=== PATIENT | female | born 1945 | race Caucasian/White ===

== ENCOUNTER 2019-06-27 11:00 | Inpatient (IN) | payer OTHER ==
[~2019-06-27] VITALS: Ht 165.1 cm; Wt 88.5 kg
[2019-06-27 11:05] VITALS: BP 129/60
[2019-06-27] MEDS ORDERED: LEXAPRO20 MG PO (11:11)
[2019-06-27] MEDS ORDERED: BUPROPION HCL150 M1 PO (11:11)
[2019-06-27] MEDS ORDERED: LEVEMIR100 UNIT/1 SUBQ (11:11)
[2019-06-27 11:45] LABS: HEMATOCRIT 41.5 % (37.0-47.0); HEMOGLOBIN 13.9 gm/dL (12.0-15.0); MCH 30.7 pg (26.0-34.0); MCHC 33.5 g/dL (28.0-37.0); MCV 91.6 fL (80.0-100.0); NUCLEATED RBCS 0 /100WBC; PLATELET COUNT* 182 thou/uL (150-400); RBC 4.52 mil/uL (4.20-5.00); RDW-CV 13.1 % (10.5-14.5); WBC 14.2 thou/uL (4.0-11.0)
[2019-06-27 11:56] LABS: CALCIUM 7.8 mg/dL (8.5-10.1); CREATININE 0.9 mg/dL (0.6-1.3); POTASSIUM 3.5 mmol/L (3.5-5.1)
[2019-06-27 11:57] LABS: APTT 25.9 Seconds (25.0-31.3); PROTIME 10.5 Seconds (9.20-11.50)
[2019-06-27 11:58] LABS: INFLUENZA A ANTIGEN Negative (Negative); INFLUENZA B ANTIGEN Negative (Negative)
[2019-06-27 12:01] LABS: TOTAL PROTEIN 6.4 g/dL (6.4-8.2)
[2019-06-27 12:16] LABS: ABSOLUTE LYMPHOCYTES 1.4 thou/uL (0.8-5.3); ABSOLUTE MONOCYTES 0.1 thou/uL (0.0-1.2); ABSOLUTE NEUTROPHILS 12.6 thou/uL (1.6-8.1); PLATELET ESTIMATE ADEQUATE
[2019-06-27 13:56] VITALS: BP 130/58
[2019-06-27] MEDS ORDERED: MICARDIS 20MG T20 M1 PO (14:18)
[2019-06-27 15:29] VITALS: BP 131/49
--- NOTE | 2019-06-27 18:42 | NUR ---
PATIENT RESTING IN BED. UP AD NOAH IN ROOM. FLU TESTING NEGATIVE. HINI RESP PANEL AND COVID19 TESTING OBTAINED AND AWAITING RESULTS. VSS. CESAR IN NOAPPARENT SIGNS OF DISTRESS AT THIS TIME. SHE IS CURRENTLY IN CONTACT/DROPLET PRECAUTIONS. HOURLY ROUNDING COMPLETED FOR [employer]INE SAFETY
[2019-06-27 19:45] VITALS: BP 130/50
[2019-06-28] VITALS (7 sets, daily range): BP systolic 95–136; BP diastolic 48–62
--- NOTE | 2019-06-28 01:31 | NUR ---
ASSUMED CARE OF PT AT 1900. PT IS ALERT AND ORIENTED. VSS. PERRLA. NO COMPLAINTS OF PAIN. PT IS ON ROOM AIR. NO FEVERS THIS SHIFT. PT IS IN SINUS RYTHM ON THE TELEMETRY. PT IS SLEEPING QUIETLY IN BED. RESPIRATIONS ARE EVEN AND NONLABORED. WILL CONTINUE TO MONITOR PT.
[2019-06-28 05:45] LABS: HEMATOCRIT 34.9 % (37.0-47.0); HEMOGLOBIN 12.1 gm/dL (12.0-15.0); MCH 31.2 pg (26.0-34.0); MCHC 34.6 g/dL (28.0-37.0); MPV 9.8 fl. (7.2-11.1); RBC 3.87 mil/uL (4.20-5.00); RDW-CV 13.2 % (10.5-14.5); WBC 14.3 thou/uL (4.0-11.0)
[2019-06-28 06:04] LABS: ALBUMIN 2.6 g/dL (3.4-5.0); CALCIUM 8.1 mg/dL (8.5-10.1); CREATININE 0.7 mg/dL (0.6-1.3); MAGNESIUM 1.7 mg/dL (1.8-2.4); POTASSIUM 3.6 mmol/L (3.5-5.1); TOTAL BILIRUBIN 0.5 mg/dL (<0.1-1.0); TOTAL PROTEIN 6.1 g/dL (6.4-8.2)
--- NOTE | 2019-06-28 09:10 | EKG ---
[place] [address] ELECTROCARDIOGRAM REPORT Name: ANA MONTERO Room: [address] ADM [place] ..#: [id number] Admission: 06/27/19 Attend Phys: Kimber Sykes, Discharge: Date of : 49 Date of Service: 06/27/19 1115 Report #: [id number] THIS REPORT FOR: //name// [facility] ED Test Date: 2019-06-27 Test Time: 11:15:04 Pat Name: ANA MONTERO Department: Room: 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 06/28/19 0909 1115 1115 Mika Jimenez MD, [facility] /EPI
--- NOTE | 2019-06-28 13:22 | NUR ---
COVID-19 test pending. Spoke with , anticipate negative result. Pt is from home with . Independent. No needs anticipated. Following.
--- NOTE | 2019-06-29 04:02 | NUR ---
ASSUMED CARE OF PT AT 1900. PT IS ALERT AND ORIENTED. VSS. PERRLA. NO COMPLAINTS OF PAIN. PT IS IN SINUS RYTHM ON THE TELEMETRY. PT IS IN ISOLATIONS FOR POSSIBLE COVID. PT IS SLEEPING COMFORTABLY IN BED. RESPIRATIONS ARE EVEN AND NONLABORED. WILL CONTINUE TO MONITOR PT.
[2019-06-29 04:18] VITALS: BP 116/41
[2019-06-29 06:26] LABS: HEMATOCRIT 34.6 % (37.0-47.0); HEMOGLOBIN 11.9 gm/dL (12.0-15.0); MCH 31.5 pg (26.0-34.0); MCHC 34.4 g/dL (28.0-37.0); MCV 91.6 fL (80.0-100.0); MPV 11.1 fl. (7.2-11.1); RBC 3.78 mil/uL (4.20-5.00); RDW-CV 13.4 % (10.5-14.5); WBC 10.6 thou/uL (4.0-11.0)
[2019-06-29 06:42] LABS: CALCIUM 8.3 mg/dL (8.5-10.1); CREATININE 0.6 mg/dL (0.6-1.3); MAGNESIUM 1.6 mg/dL (1.8-2.4); POTASSIUM 3.5 mmol/L (3.5-5.1)
[2019-06-29 08:00] VITALS: BP 120/61
[2019-06-29 12:00] VITALS: BP 121/53
[2019-06-29] MEDS ORDERED: NEURONTIN600 MG PO (13:16)
[2019-06-29] MEDS ORDERED: TRAZODONE HCL100 MG PO (13:16)
[2019-06-29] MEDS ORDERED: BENZONATATE100 MG PO (13:16)
[2019-06-29] MEDS ORDERED: LEVAQUIN 500 M500 M3 PO (13:16)
[2019-06-29 13:45] VITALS: BP 121/53
--- NOTE | 2019-06-29 19:02 | NUR ---
ORDER RECEIVED TO DISCHARGE CESAR HOME TO SELF CARE. MED REC, MEDICATION EDUCATION, AND NEED FOR FOLLOW UP APPTS COVERED WITH PATIENT. SHE WAS IBNSTRUCTED ON THE NEED TO SELF ISOLATE WIOTH HER HUSBANMD UNTIOL THE RESULTS OF COVID19 TESTING IS REPORTED TO HER. DC TIME OF 17:05.
[2019-07-03 06:07] LABS: ADENOVIRUS Negative (Negative); INFLUENZA A Negative (Negative); INFLUENZA B Negative (Negative); METAPNEUMOVIRUS Negative (Negative); PARAINFLUENZA 1 Negative (Negative); PARAINFLUENZA 2 Negative (Negative); PARAINFLUENZA 3 Negative (Negative); RHINOVIRUS Negative (Negative); RSV A Negative (Negative); RSV B Negative (Negative)
== END 2019-06-29 17:07 | disposition home or self-care (01) | DRG 177 ==
LOC: M.ERS 11:00 → M.TBA-ER 12:39 → M.2W 12:39
PROVIDERS: Nurse Practitioner Family; ADMIT Internal Medicine
DX: J15.6 Pneumonia due to other Gram-negative bacteria (principal); J96.01 Acute respiratory failure with hypoxia; R65.11 Systemic inflammatory response syndrome (SIRS) of non-infectious origin with acute organ dysfunction; I10 Essential (primary) hypertension; E11.9 Type 2 diabetes mellitus without complications; Z79.4 Long term (current) use of insulin; Z88.0 Allergy status to penicillin; Z88.2 Allergy status to sulfonamides; Z91.040 Latex allergy status; Z95.1 Presence of aortocoronary bypass graft; Z90.49 Acquired absence of other specified parts of digestive tract; Z90.710 Acquired absence of both cervix and uterus

== ENCOUNTER 2019-11-06 10:41 | Emergency (ER) | payer OTHER ==
[~2019-11-06] VITALS: Ht 165.1 cm; Wt 91.6 kg
[~2019-11-06 10:41] MED LIST: BENZONATATE100 MG PO; BUPROPION HCL150 M1 PO; LEVAQUIN 500 M500 M3 PO; LEVEMIR100 UNIT/1 SUBQ; LEXAPRO20 MG PO; MICARDIS 20MG T20 M1 PO; NEURONTIN600 MG PO; TRAZODONE HCL100 MG PO
[2019-11-06] MEDS ORDERED: BUPROPION XL300 MG (11:01)
[2019-11-06] MEDS ORDERED: NORCO 5-325 TA1 EAC2 PO (12:02)
[2019-11-06 12:29] VITALS: BP 165/50
== END 2019-11-06 12:30 | disposition home or self-care (01) ==
LOC: M.ERS 10:41
DX: S82.492A Other fracture of shaft of left fibula, initial encounter for closed fracture (principal); E11.9 Type 2 diabetes mellitus without complications; Z90.710 Acquired absence of both cervix and uterus; Z90.49 Acquired absence of other specified parts of digestive tract; Z95.1 Presence of aortocoronary bypass graft; Z90.10 Acquired absence of unspecified breast and nipple; Z91.040 Latex allergy status; Z88.2 Allergy status to sulfonamides; Z79.4 Long term (current) use of insulin; Z88.0 Allergy status to penicillin; X58.XXXA Exposure to other specified factors, initial encounter; Y93.89 Activity, other specified; Y92.89 Other specified places as the place of occurrence of the external cause; Y99.8 Other external cause status